=== PATIENT | female | born 1990 | race Caucasian/White ===

== ENCOUNTER 2024-12-25 11:05 | Outpatient (CLI) | payer OTHER, SELFPAY ==
[2024-12-25 12:19] LABS: Influenza A QL RT-PCR Positive (Negative); Influenza B QL RT-PCR Negative (Negative); RSV RNA, RT-PCR Negative (Negative); SARS-CoV-2 RNA PCR Negative (Negative)
== END 2024-12-25 11:06 | disposition home or self-care (01) ==
LOC: ANHLAB 11:06
PROVIDERS: PCP Family Medicine; Visit Provider Family Medicine
DX: R50.9 Fever, unspecified (principal)
CPT/HCPCS: 87637